=== PATIENT | male | born 1935 | race Caucasian/White ===

== ENCOUNTER 2018-12-16 14:22 | Inpatient (IN) | payer MEDICARE, MEDICAID ==
[2018-12-16] VITALS (17 sets, daily range): BP systolic 92–143; BP diastolic 48–84
[~2018-12-16] VITALS: Ht 174 cm; Wt 81.0 kg
[~2018-12-16 14:22] MED LIST: ASPI81TA30 PO; ATOR20TA PO; BECL8.7A5 IH; BETA15CR15 TOP; CELE100C98 PO; FLO0.4C PO; LEVA15HF4 IH; LOP25T PO; NORCO10T PO; SYN0.088T PO; VALS160T2 PO
[2018-12-16] MEDS ORDERED: aspirin 81mg tab.chew PO ONE (14:35)
--- NOTE | 2018-12-16 14:50 | NUR ---
pt placed on one-step pads, crash cart at bedside.
[2018-12-16 14:54] LABS: BASOPHILS # (AUTO) 0.1 X10'3 (0-0.2); BASOPHILS % (AUTO) 0.6 % (0-1); EOSINOPHILS # (AUTO) 0.6 X10'3 (0-0.9); EOSINOPHILS % (AUTO) 5.9 % (0-6); HEMATOCRIT 38.8 % (42.0-52.0); HEMOGLOBIN 13.1 g/dl (14.0-17.9); LYMPHOCYTES # (AUTO) 2.3 X10'3 (1.1-4.8); LYMPHOCYTES % (AUTO) 21.1 % (21-51); MEAN CORPUSCULAR HEMOGLOBIN 33.2 PG (27.0-31.0); MEAN CORPUSCULAR HGB CONC 33.7 g/dL (33.0-36.5); MEAN CORPUSCULAR VOLUME 98.6 FL (78-98); MEAN PLATELET VOLUME 8.8 FL (7.4-10.4); MONOCYTES # (AUTO) 0.9 X10'3 (0-0.9); MONOCYTES % (AUTO) 8.1 % (2-12); NEUTROPHILS % (AUTO) 64.3 % (42-75); PLATELET COUNT 147 X10'3 (140-440); RED BLOOD COUNT 3.93 X10'6 (4.70-6.10); RED CELL DISTRIBUTION WIDTH 14.8 % (11.5-14.5); WHITE BLOOD COUNT 10.8 X10'3 (4.5-11.0)
[2018-12-16 15:09] LABS: ALANINE AMINOTRANSFERASE 31 U/L (12-78); ALBUMIN 3.8 G/DL (3.4-5.0); ALBUMIN/GLOBULIN RATIO 1.2 (1.1-1.5); ALKALINE PHOSPHATASE 52 IU/L (46-116); ANION GAP 11 (8-16); ASPARTATE AMINO TRANSFERASE 27 U/L (10-37); BILIRUBIN,TOTAL 1.3 MG/DL (0.1-1.0); BLOOD UREA NITROGEN 29 MG/DL (7-18); CALCIUM 8.3 MG/DL (8.5-10.1); CHLORIDE 107 MMOL/L (99-107); CREATININE 2.07 MG/DL (0.60-1.10); GLUCOSE 96 MG/DL (70-104); SODIUM 139 MMOL/L (135-145); eGFR 31 ML/MIN
--- NOTE | 2018-12-16 15:16 | NUR ---
DR RINCON AT BEDSIDE.
[2018-12-16 15:17] LABS: MAGNESIUM 2.3 MG/DL (1.5-2.4)
[2018-12-16] MEDS ORDERED: LIDOcaine 1% 30ml preserv. free vial ONE (15:48)
[2018-12-16] MEDS ORDERED: ceFAZolin 1000mg inj ONE ×3 (15:48→16:29)
[2018-12-16] MEDS ORDERED: fentaNYL/PF 50MCG/1 ML 2ML syringe ONE (15:52)
[2018-12-16] MEDS ORDERED: midazolam 2 mg/2 ml injection ONE ×2 (15:52→15:53)
[2018-12-16] MEDS ORDERED: ringers solution, lacted 1,000 ML IV SCH (16:02)
[2018-12-16] MEDS ORDERED: hydrALAZINE 20mg/ml inj. IV PRN (16:05)
[2018-12-16] MEDS ORDERED: ceFAZolin 2gm in dextrose, iso 100 ML IV ONE (16:05)
[2018-12-16] MEDS ORDERED: fentaNYL/PF 50MCG/1 ML 2ML syringe IV PRN ×2 (16:05)
[2018-12-16] MEDS ORDERED: morphine 4 MG/ML inj SYRINge IV PRN ×2 (16:05)
[2018-12-16] MEDS ORDERED: enalaprilat dihydrate 2.5mg/2ml vial IV PRN (16:05)
[2018-12-16] MEDS ORDERED: ondansetron/PF 4mg/2ml inj IV PRN ×2 (16:05→17:25)
--- NOTE | 2018-12-16 16:07 | NUR ---
SBAR REPORT GIVEN TO OR, RN. PT TO OR.
[2018-12-16] MEDS ORDERED: atropine 0.4 mg/ml 20ml vial ONE (16:30)
[2018-12-16] MEDS ORDERED: LIDOcaine 1%/PF 5ML 10 MG/ML VIAL ONE (16:33)
[2018-12-16] MEDS ORDERED: propofol inj 20 ML IV ONE (16:33)
[2018-12-16] MEDS ORDERED: potassium CL 20mEq in D5-1/2NS 1,000 ML IV SCH (17:25)
[2018-12-16] MEDS ORDERED: HYDROcodone/acetaminophen 10/325mg tab PO PRN (17:25)
--- NOTE | 2018-12-16 17:43 | NUR ---
Received from OR via , accompanied by Anesthesiologist DR HOUSTON and report given by Anesthesiolgist. PT IS AWAKE, ALERT, MOVING EXT X 4, SKIN WARM AND PINK, NO C/O PAIN, ECG MONITOR DOUBLE COUNTING BEATS OCC. ACCORDING TO THE PACEMAKER REP, THIS WAS HAPPENING IN THE OR. PALPATING THE PULSE RESULTS IN A RATE OF 60'S, AV PACED, 20G RIGHT FA LR 100ML/HR, 20G LEFT UPPER FA SALINE LOCK, SCD'S, PACEMAKER SITE CD WITH SUTURE, STERI STRIPS AND TEGADERM, LITER FLUID BAG ON TOP OF PACER PER DR IGLESIAS, FRIEND AT BS.
--- NOTE | 2018-12-16 18:08 | NUR ---
CXR AND EKG COMPLETED PER DR IGLESIAS'S ORDERS.
--- NOTE | 2018-12-16 18:28 | NUR ---
Report called to receiving nurse. Transferred via BED Belongings . Special Issues communicated to receiving nursE CHARLOTTE JEONG. PT IS AWAKE, ALERT, NO C/O PAIN, VSS, AV PACED, LITER FLUID ON SITE, SITE CD, PIV PATENT, PT MEETS DISCHARGE CRITERIA AND ROSANNE ICE CHIPS.
--- NOTE | 2018-12-16 18:30 | NUR ---
Report called from MARI-Deysi RN to receiving nurse, Debbie JEONG. Transferred via Health system . Special Issues communicated to receiving nurse.
--- NOTE | 2018-12-16 18:30 | NUR ---
Patient in room MED 310. I have received report from Elayne JEONG/Wendy JEONG and had the opportunity to ask questions and assume patient care.
--- NOTE | 2018-12-16 19:00 | NUR ---
Dr. Julien in room with patient. Notified her that I was completing the patient's home med rec and that it still needed to be addressed.
[2018-12-16] MEDS ORDERED: OSC500T PO (19:19)
[2018-12-16] MEDS ORDERED: FERR325T28 PO (19:19)
[2018-12-16] MEDS: normal saline 1000ml 1,000 ML IV SCH ×2 (20:00→22:41)
[2018-12-17] MEDS: ceFAZolin 1GM/D5W- ADD-VANTAGE 50 ML IV SCH ×2 (00:14→07:32)
[2018-12-17 02:00] VITALS: BP 128/71
[2018-12-17] MEDS: normal saline 1000ml 1,000 ML IV SCH (04:10)
[2018-12-17 04:47] LABS: BASOPHILS # (AUTO) 0.1 X10'3 (0-0.2); BASOPHILS % (AUTO) 0.8 % (0-1); EOSINOPHILS # (AUTO) 0.8 X10'3 (0-0.9); EOSINOPHILS % (AUTO) 8.9 % (0-6); HEMATOCRIT 36.1 % (42.0-52.0); HEMOGLOBIN 12.2 g/dl (14.0-17.9); LYMPHOCYTES # (AUTO) 1.5 X10'3 (1.1-4.8); LYMPHOCYTES % (AUTO) 16.3 % (21-51); MEAN CORPUSCULAR HEMOGLOBIN 33.2 PG (27.0-31.0); MEAN CORPUSCULAR HGB CONC 33.7 g/dL (33.0-36.5); MEAN CORPUSCULAR VOLUME 98.4 FL (78-98); MEAN PLATELET VOLUME 8.8 FL (7.4-10.4); MONOCYTES # (AUTO) 0.8 X10'3 (0-0.9); MONOCYTES % (AUTO) 8.3 % (2-12); NEUTROPHILS # (AUTO) 6.1 X10'3 (1.8-7.7); NEUTROPHILS % (AUTO) 65.7 % (42-75); PLATELET COUNT 123 X10'3 (140-440); RED BLOOD COUNT 3.67 X10'6 (4.70-6.10); RED CELL DISTRIBUTION WIDTH 14.6 % (11.5-14.5); WHITE BLOOD COUNT 9.3 X10'3 (4.5-11.0)
[2018-12-17 04:49] LABS: ALBUMIN 3.2 G/DL (3.4-5.0); ANION GAP 10 (8-16); BLOOD UREA NITROGEN 22 MG/DL (7-18); BUN/CREATININE RATIO 17.2 (5.4-32.0); CALCIUM 7.7 MG/DL (8.5-10.1); CHLORIDE 113 MMOL/L (99-107); CREATININE 1.28 MG/DL (0.60-1.10); GLUCOSE 90 MG/DL (70-104); POTASSIUM 4.7 MMOL/L (3.5-5.1); SODIUM 142 MMOL/L (135-145); TOTAL CARBON DIOXIDE 19.5 MMOL/L (24-32); eGFR 54 ML/MIN
--- NOTE | 2018-12-17 05:36 | NUR ---
O[facility] documentation: I have reviewed and agree with all interventions, assessments performed and documented by Debbie Vivar RN. [facility] Medication Administration: For this medication-pass time frame, all medication were reviewed, dispensed, administered and documented per hospital policy by Debbie Vivar RN.
--- NOTE | 2018-12-17 06:30 | NUR ---
Problems reprioritized. Patient report given, questions answered & plan of care reviewed with Mariano JEONG .
[2018-12-17 06:45] VITALS: BP 127/79
--- NOTE | 2018-12-17 06:54 | NUR ---
Patient in room MED 310. I have received report from JEAN-PAUL Lewis and had the opportunity to ask questions and assume patient care.
--- NOTE | 2018-12-17 07:27 | NUR ---
PAGER ID: [phone] MESSAGE: [phone]. Can you review this patients med rec please? Thank you ACCE [id number]
--- NOTE | 2018-12-17 10:36 | NUR ---
PAGER ID: [phone] MESSAGE: #[phone] Ricardo Hodges. please address the home med rec. unable to give AM home meds. Thank you. Wendy JEONG. [phone]
[2018-12-17 11:00] VITALS: BP 125/61
--- NOTE | 2018-12-17 14:04 | NUR ---
Gisela. Can we get an ETA for this pt's ECHO? this is all he needs completed to be discharged. Thank You.
[2018-12-17 15:00] VITALS: BP 140/65
--- NOTE | 2018-12-17 15:50 | NUR ---
PAGER ID: [phone] MESSAGE: BharathCarroll. ECHO just finished. Thank You. ACCE [id number]
--- NOTE | 2018-12-17 16:39 | NUR ---
Orienteer documentation: I have reviewed and agree with all interventions, assessments performed and documented by Wendy JEONG.
--- NOTE | 2018-12-17 17:28 | NUR ---
pt. discharged at 1724 and left with his son. he was escorted by staff via wheelchair to his ride. pt. left with all his belongings. IV was d/c and paperwork was reviewed and signed.
== END 2018-12-17 17:25 | disposition home or self-care (01) | DRG 242 ==
LOC: ER 14:23 → MED 3N 16:40
PROVIDERS: ADMIT Surgery; ATTEND Internal Medicine
PROC: 02H63JZ Insertion of Pacemaker Lead into Right Atrium, Percutaneous Approach (ICD-10-PCS; 2018-12-16)
PROC: 02HK3JZ Insertion of Pacemaker Lead into Right Ventricle, Percutaneous Approach (ICD-10-PCS; 2018-12-16)
PROC: 0JH606Z Insertion of Pacemaker, Dual Chamber into Chest Subcutaneous Tissue and Fascia, Open Approach (ICD-10-PCS; principal; 2018-12-16 16:20)
DX: I44.2 Atrioventricular block, complete (principal); N17.0 Acute kidney failure with tubular necrosis; E78.5 Hyperlipidemia, unspecified; E03.9 Hypothyroidism, unspecified; N40.0 Benign prostatic hyperplasia without lower urinary tract symptoms; J44.9 Chronic obstructive pulmonary disease, unspecified; I12.9 Hypertensive chronic kidney disease with stage 1 through stage 4 chronic kidney disease, or unspecified chronic kidney disease; G89.29 Other chronic pain; N18.9 Chronic kidney disease, unspecified; Z79.899 Other long term (current) drug therapy; Z87.891 Personal history of nicotine dependence; Z79.82 Long term (current) use of aspirin
CPT/HCPCS: 36415; 71045; 76000; 80048; 80053; 83735; 83880; 84484; 85025; 87081; 93005; 93306; 94668; 99285; A4215; A4565; A6258; A6402; A7000; C1785; G0378; J0461; J0690; J2001; J2250; J2704; J3010; J7030; J7120